=== PATIENT | female | born 1965 | race Caucasian/White ===

== ENCOUNTER 2020-04-08 08:13 | Observation (INO) | payer BC ==
[~2020-04-08] VITALS: Ht 167.6 cm; Wt 88.0 kg
[2020-04-08] VITALS (24 sets, daily range): BP systolic 106–142; BP diastolic 56–81
[2020-04-08] MEDS ORDERED: SODIUM CHLORIDE 0.9% 1000ML 1,000 ML IV ONE ×2 (08:36→10:41)
[2020-04-08 08:39] LABS: BASOPHILS % (AUTO) 0.6 % (0.0-5.0); EOSINOPHILS % (AUTO) 2.3 % (0.0-8.0); HEMATOCRIT 38.5 % (36-48); LYMPHOCYTES % (AUTO) 29.6 % (21.0-51.0); MEAN CORPUSCULAR HEMOGLOBIN 31.6 pg (27.0-33.0); MEAN CORPUSCULAR HGB CONC 33.8 g/dL (32.0-36.0); MEAN CORPUSCULAR VOLUME 93.4 fL (79-99); MONOCYTES % (AUTO) 6.1 % (3.0-13.0); NEUTROPHILS % (AUTO) 60.9 % (40.0-77.0); PLATELET COUNT (AUTO) 245 K/uL (130-400); RED BLOOD CELL COUNT(AUTO) 4.12 MIL/uL (4.00-5.50); RED CELL DISTRIBUTION WIDTH 12.3 % (11.0-15.5); WHITE BLOOD COUNT (AUTO) 6.4 K/uL (4.8-10.8)
[2020-04-08 08:54] LABS: INR 0.92 (0.85-1.15)
[2020-04-08 09:02] LABS: ALBUMIN 3.7 g/dL (3.5-5.0); BILIRUBIN,TOTAL 0.4 mg/dL (0.2-1.0); POTASSIUM 4.3 mmol/L (3.5-5.1); TOTAL PROTEIN, SERUM 7.1 g/dL (6.0-8.3)
[2020-04-08] MEDS ORDERED: MORPHINE SULFATE 2 MG/ML 1ML SYG ONE (09:02)
[2020-04-08] MEDS ORDERED: ONDANSETRON HCL 4 MG/2 ML VIAL ONE ×3 (09:02→13:59)
[2020-04-08] MEDS ORDERED: IOHEXOL 350 MG/ML 100ML INFUS..BTL IV ONE (09:10)
[2020-04-08 09:45] LABS: CREATININE 0.8 mg/dL (0.5-1.5)
[2020-04-08] MEDS ORDERED: MORPHINE SULFATE 4 MG/1ML SYG ONE ×3 (09:47→14:05)
[2020-04-08 09:50] LABS: APPEARANCE,URINE Clear (CLEAR); BILIRUBIN,URINE Negative (NEGATIVE); COLOR,URINE Yellow (YELLOW); GLUCOSE, URINE (UA) Negative (NEGATIVE); KETONES,URINE Negative (NEGATIVE); LEUKOCYTE ESTERASE ,URINE Trace (NEGATIVE); NITRATE,URINE Negative (NEGATIVE); OCCULT BLOOD,URINE Negative (NEGATIVE); PROTEIN,URINE Negative (NEGATIVE); UROBILINOGEN,URINE 0.2 mg/dL (0.2-1.0)
[2020-04-08 10:18] LABS: BACTERIA,URINE Few /HPF (None Seen); RBC,URINE None Seen /HPF (0-1)
[2020-04-08 10:19] LABS: SQUAMOUS EPITHELIAL CELL,UR 0-2 /HPF (0-2)
[2020-04-08] MEDS ORDERED: ZOSYN 3.375GM+NS 50ML 50 ML IV ONE ×2 (11:31→19:28)
[2020-04-08] MEDS ORDERED: ACETAMINOPHEN 325 MG TAB PO PRN (16:15)
[2020-04-08] MEDS ORDERED: ONDANSETRON HCL 4 MG/2 ML VIAL IVP PRN (16:15)
[2020-04-08] MEDS ORDERED: KETOROLAC TROMETHAMINE 30MG/ML IM PRN (16:15)
[2020-04-08] MEDS ORDERED: D5W-1/2 NS/20MEQ KCL 1,000 ML IV SCH (16:15)
[2020-04-08] MEDS ORDERED: TRAMADOL HCL 50 MG TABLET PO PRN (16:15)
[2020-04-08] MEDS ORDERED: MORPHINE SULFATE 4 MG/1ML SYG IV PRN (16:15)
[2020-04-08] MEDS ORDERED: MIDAZOLAM HCL 1 MG/ML 2ML VIAL ONE (16:26)
[2020-04-08] MEDS ORDERED: SUCCINYLCHOLINE 200MG/10ML SYR ONE (16:26)
[2020-04-08] MEDS ORDERED: FENTANYL CITRATE PF 50 MCG/1 ML 2ML VIAL ONE (16:26)
[2020-04-08] MEDS ORDERED: PROPOFOL 10 MG/ML 20ML VIAL IV ONE (16:26)
[2020-04-08] MEDS ORDERED: ROCURONIUM 10MG/1ML SYR 10 MG/ML ML ONE (16:26)
[2020-04-08] MEDS ORDERED: BUPIVACAINE/PF 0.5% 30ML VIAL ONE (16:47)
[2020-04-08] MEDS ORDERED: NEOSTIGMINE 5MG/5ML SYR IV ONE (17:07)
[2020-04-08] MEDS ORDERED: GLYCOPYRROLATE 1 MG/5 ML SYRINGE ONE (17:07)
--- NOTE | 2020-04-08 18:30 | NUR ---
TOOK REPORT FROM [facility] ROOM NURSE, NOW PT.TO ROOM 314, AAO, IVF INFUSING VIA 20G LT.AC. 3 SM. DRESSINGS TO ABD.SKIN WARM AND DRY,NO PAIN AT THIS TIME.REPORT ENDORSED TO INCOMING NURSE.
[2020-04-08] MEDS ORDERED: FAMOTIDINE/PF 20 MG/2 ML VIAL IV ONE (19:28)
[2020-04-08] MEDS: FAMOTIDINE/PF 20 MG/2 ML VIAL IV SCH (19:31)
[2020-04-08] MEDS: ZOSYN 3.375GM+NS 50ML 50 ML IV SCH ×2 (19:32)
[2020-04-09 03:43] VITALS: BP 115/71
[2020-04-09 03:44] VITALS: BP_SYST 115; BP_SYST 156; BP_DIAS 71; BP_DIAS 93
[2020-04-09] MEDS: ZOSYN 3.375GM+NS 50ML 50 ML IV SCH ×2 (05:00→06:08)
--- NOTE | 2020-04-09 08:00 | NUR ---
am shift assessment, states she is ready to go home, has been up, voiding freely, doing 1500 on i/s. abd. soft , bowel sounds active.
[2020-04-09] MEDS: FAMOTIDINE/PF 20 MG/2 ML VIAL IV SCH (09:05)
--- NOTE | 2020-04-09 09:30 | NUR ---
DR. ARMENTA CALLED FOR UPDATE. WILL BE IN AROUND LUNCH TIME, WANTS PT. UP AND WALKING, ALSO WANTS HER TO SHOWER. PT. STATES SHE WILL SHOWER AT HOME.
[2020-04-09 10:44] VITALS: BP 109/60
[2020-04-09 12:20] VITALS: BP 116/65
--- NOTE | 2020-04-09 13:20 | NUR ---
DISCHARGED NOW USING TEACH, WILL CALL OFFICE IN AM FOR A 2 WEEK APPT.SALINE LOCK REMOVED. PT. VERY ANXIOUS TO GO HOME. RX. FOR TRAMADOL GIVEN. NO CONCERNS OR C/O VOICED AT TIME OF DISCHARGE.
== END 2020-04-09 13:19 | disposition home or self-care (01) ==
LOC: EDH 08:13 → EDHIP 11:25 → 3CH 18:21
PROVIDERS: ADMIT Specialist; ATTEND Specialist
DX: K35.30 Acute appendicitis with localized peritonitis, without perforation or gangrene (principal); E66.01 Morbid (severe) obesity due to excess calories; Z87.891 Personal history of nicotine dependence; Z90.49 Acquired absence of other specified parts of digestive tract; Z88.1 Allergy status to other antibiotic agents; Z88.2 Allergy status to sulfonamides; Z88.5 Allergy status to narcotic agent; Z68.31 Body mass index [BMI] 31.0-31.9, adult
CPT/HCPCS: 36415; 44970; 71045; 74177; 80053; 81001; 82150; 82550; 83690; 84484; 85025; 85610; 85730; 93005; 96361 ×2; 96372; 96374; 96375; 96376; 99283; A4215; A4600; A4649 ×4; A6206; C1769 ×3; G0378 ×14; J0330; J1885 ×2; J2250; J2270 ×4; J2405 ×4; J2543 ×3; J2704; J2710; J3010; J3480; J3490 ×4; J7030 ×3; J7120; Q9967

== ENCOUNTER 2020-05-11 10:05 | Day surgery (SDC) | payer BC ==
[2020-05-11] MEDS ORDERED: IODIXANOL 320 MG/ML 100 ML VIAL ONE (10:45)
[2020-05-11] MEDS ORDERED: LIDOCAINE HCL 1% MDV 50ML VIAL ONE (10:46)
[2020-05-11 10:53] LABS: BASOPHILS % (AUTO) 0.8 % (0.0-5.0); EOSINOPHILS % (AUTO) 2.4 % (0.0-8.0); HEMATOCRIT 40.7 % (36-48); LYMPHOCYTES % (AUTO) 30.7 % (21.0-51.0); MEAN CORPUSCULAR HEMOGLOBIN 31.3 pg (27.0-33.0); MEAN CORPUSCULAR HGB CONC 33.4 g/dL (32.0-36.0); MEAN CORPUSCULAR VOLUME 93.6 fL (79-99); MONOCYTES % (AUTO) 7.8 % (3.0-13.0); NEUTROPHILS % (AUTO) 58.1 % (40.0-77.0); PLATELET COUNT (AUTO) 231 K/uL (130-400); RED BLOOD CELL COUNT(AUTO) 4.35 MIL/uL (4.00-5.50); RED CELL DISTRIBUTION WIDTH 12.3 % (11.0-15.5); WHITE BLOOD COUNT (AUTO) 6.3 K/uL (4.8-10.8)
[2020-05-11] MEDS ORDERED: IOHEXOL-350 50ML VIAL IV ONE (10:53)
[2020-05-11 11:19] LABS: CREATININE 0.7 mg/dL (0.5-1.5); POTASSIUM 4.3 mmol/L (3.5-5.1)
[2020-05-11 11:53] LABS: INR 0.95 (0.85-1.15); PARTIAL THROMBOPLASTIN TIME 23.6 SEC (26.3-35.5); PROTHROMBIN TIME 10.3 SEC (9.6-11.6)
== END 2020-05-11 12:50 | disposition home or self-care (01) ==
LOC: CLH 10:05
PROVIDERS: ATTEND Surgery
DX: T81.40XA Infection following a procedure, unspecified, initial encounter (principal); Z90.49 Acquired absence of other specified parts of digestive tract; Z90.89 Acquired absence of other organs; Z88.1 Allergy status to other antibiotic agents; Z88.2 Allergy status to sulfonamides; Z88.5 Allergy status to narcotic agent; Z79.01 Long term (current) use of anticoagulants; Z79.899 Other long term (current) drug therapy; Y83.8 Other surgical procedures as the cause of abnormal reaction of the patient, or of later complication, without mention of misadventure at the time of the procedure
CPT/HCPCS: 36415; 49424; 76080; 80048; 85025; 85610; 85730; A4215; A4216; A4221; A4222; A4223 ×3; A4606; A4663; Q9967; J1644; J3490

== ENCOUNTER → 2020-09-04 | Outpatient (CLI) | payer BC ==
[~2020-09-04] MED LIST: IOHEXOL 350 MG/ML 100ML INFUS..BTL IV ONE
== END | disposition home or self-care (01) ==
LOC: RAH 09:51
PROVIDERS: ATTEND Family Medicine
DX: K65.1 Peritoneal abscess (principal); R10.2 Pelvic and perineal pain; K42.9 Umbilical hernia without obstruction or gangrene; N73.9 Female pelvic inflammatory disease, unspecified; Z90.49 Acquired absence of other specified parts of digestive tract
CPT/HCPCS: 74178; Q9967